=== PATIENT | female | born 1955 | race Caucasian/White ===

== ENCOUNTER → 2016-12-03 | Outpatient (CLI) | payer MEDICARE ==
[~2016-12-03] MED LIST: ACET-2321 PO; ASCO60LO11 PO; ASPI-558 PO; ATEN100T77 PO; CALC-1012 PO; HYDR12.512 PO; IBUP200C62 PO
== END ==
LOC: WC.BC 11:06
DX: Z12.31 Encounter for screening mammogram for malignant neoplasm of breast (principal)
CPT/HCPCS: 77063; G0202